=== PATIENT | male | born 1940 | race Caucasian/White ===

== ENCOUNTER → 2020-02-02 07:35 | Outpatient (CLI) | payer MEDICARE, OTHER ==
--- NOTE | ~2020-02-02 | HEMODYNAMI ---
PATIENT:KATIE PETER MEDICAL RECORD: [id number] : 38 LOCATION:[facility] ADMISSION DATE: 02/02/20 Generatedon:02/02/20208:54 Patient name: KATIE PETER Patient #: [id number] SSN: : [id number] Date of study: 02/02/2020 Page: Of Hemodynamic Procedure Report Patient Data Patient Demographics Procedure consent was obtained First Name: KATIE Gender: Male Last Name: BRITTANI : 1940 [facility] Initial: ESTHELA Age: 79 year(s) Patient #: [id number] Race: Unknown Additional ID: [id number] Contact details Address: [address] [place] [address] [address]IVE State: [place] City: [place] Zip code: [address] Admission Admission Data Admission Date: 02/02/2020 Admission Time: 7:35 Procedure Procedure Types Cath Procedure Peripheral Cath Diagnostic Procedure Miscellaneous Epidural Steroid Injection Procedure Description Procedure Date Procedure Date: 02/02/2020 Procedure Start Time: 8:47 Procedure Staff Name Function Mohinder Schaeffer MD Performing Physician Flash Reeves RT Monitor Joy RM RN Nurse Procedure Data Cath Procedure Fluoroscopy Diagnostic fluoroscopy Total fluoroscopy Time: 0.1 time: 0.1 min min Diagnostic fluoroscopy Total fluoroscopy dose: 3 dose: 3 mGy mGy Hemodynamics Rest Pre Cath Intra NCS Post Cath Procedure Log Time Note 8:42:12 Flash Reeves RT (R) (CV) sent for patient. Start room use. 8:42:24 Time tracking: Regular hours (M-F 7:00 - 5:00) 8:42:29 Patient received from Other to IR Alert and oriented. Tansferred to table in Prone position. 8:42:33 Signed procedure consent form obtained from patient. 8:42:34 Correct patient and procedure confirmed by team. 8:42:37 Pre-procedure instructions explained to patient. 8:42:38 Pre-op teaching completed and patient verbalized understanding. 8:42:46 ALLERGIES KEFLEX 8:42:49 Is patient on blood thinner?No 8:43:04 KIT EPIDURAL CATHETERIZATION opened to sterile field. 8:43:24 8:43:35 Lumbar area was prepped with betadine and draped in sterile fashion 8:46:54 --------ALL STOP TIME OUT------ 8:46:55 Final Timeout: patient, procedure, and site verified with staff and physician. All members of the team are in agreement. 8:46:59 Lumbar site verified by team. 8:47:06 Sedation plan: Local Anesthetic Medication:Lidocaine 8:47:43 Procedure started. 8:47:43 Full Disclosure recording started 8:47:48 Local anesthetic to Lumbar area with Lidocaine 1% by Mohinder Schaeffer MD.INITIAL ACCESS ONLY 8:52:54 Procedure ended.(Physican Out) 8:53:14 Fluoroscopy time 00.10 minutes. 8:53:16 Fluoroscopy dose: 3 mGy 8:53:16 Flurop Dose total: 3 8:53:21 Insertion/operative site no bleeding no hematoma. 8:53:40 BANDAIDE APPLIED TO LUMBAR AREA PT SENT HOME Device Usage Item Name Manufacture Quantity Catalog Hospital Part Current Minima l Lot# / Number Charge Number Stock Stock Serial# Code KIT EPIDURAL Teleflex 1 [id number] CATHETERIZATION Signature Audit [place] Stage Time Signature Unsigned Intra-Procedure 02/02/2020 Flash 8:54:04 AM Lala RT (R) (CV) [facility] [address] [place] [address]
== END | disposition home or self-care (01) ==
LOC: D.RAD 07:35 → EDSEX 07:35 → D.RAD 09:00
PROVIDERS: ATTEND Specialist
DX: M54.89 Other dorsalgia (principal); M48.061 Spinal stenosis, lumbar region without neurogenic claudication

== ENCOUNTER → 2020-10-01 09:15 | Day surgery (SDC) | payer MEDICARE, OTHER ==
--- NOTE | ~2020-10-01 | HEMODYNAMI ---
PATIENT:KATIE PETER MEDICAL RECORD: [id number] : 38 LOCATION:[facility] ADMISSION DATE: 10/01/20 Generatedon:110:09 Patient name: KATIE PETER Patient #: [id number] SSN: : 1940 Date of study: 10/01/2020 Page: Of Hemodynamic Procedure Report Patient Data Patient Demographics Procedure consent was obtained First Name: KATIE Gender: Male Last Name: BRITTANI : 1940 [facility] Initial: ESTHELA Age: 80 year(s) Patient #: [id number] Race: Unknown Additional ID: [id number] Contact details Address: [address] [place] [address] [address]IVE State: [place] City: [place] Zip code: [address] Past Medical History Allergies Allergen Reaction Date Comments Reported Other allergy 10/01/2020 keflex Admission Admission Data Admission Date: 10/01/2020 Admission Time: 9:15 Procedure Procedure Types Cath Procedure Peripheral Cath Diagnostic Procedure Refrigeration [place] Peripheral Procedures Miscellaneous Epidural Steroid Injection Procedure Description Procedure Date Procedure Date: 10/01/2020 Procedure Start Time: 9:53 Procedure Staff Name Function Mohinder Schaeffer MD Performing Physician Faustina Beatty RT Adjunct Professor Of English Aleida Fiore RN Nurse Procedure Data Cath Procedure Fluoroscopy Diagnostic fluoroscopy Total fluoroscopy Time: 0.7 time: 0.7 min min Diagnostic fluoroscopy Total fluoroscopy dose: 16 dose: 16 mGy mGy Hemodynamics Rest Pre Cath Intra NCS Post Cath Procedure Log Time Note 9:34:53 Time tracking: Regular hours (M-F 7:00 - 5:00) 9:35:01 Patient received from Other to IR Alert and oriented. Tansferred to table in Prone position. 9:35:05 Signed procedure consent form obtained from patient. 9:41:04 KIT EPIDURAL CATHETERIZATION opened to sterile field. 9:50:02 Patient allergic to Other allergykeflex 9:50:07 Is patient on blood thinner?No 9:50:18 Lumbar area was prepped with betadine and draped in sterile fashion 9:50:22 - 9:52:45 Physician arrived 9:52:51 --------ALL STOP TIME OUT------ 9:52:52 Final Timeout: patient, procedure, and site verified with staff and physician. All members of the team are in agreement. 9:53:01 Procedure started. 9:53:01 Full Disclosure recording started 9:53:08 Local anesthetic to Lumbar area with Lidocaine 1% by Mohinder Schaeffer MD.INITIAL ACCESS ONLY 10:01:20 Procedure ended.(Physican Out) 10:01:40 Fluoroscopy time 00.70 minutes. 10:01:46 Fluoroscopy dose: 16 mGy 10:01:46 Flurop Dose total: 16 10:01:48 Procedure and supply charges have been captured, reviewed, submitted an d are correct. 10:09:01 Patient transfered to Other with Ambulatory. Device Usage Item Name Manufacture Quantity Catalog Hospital Part Current Minima l Lot# / Number Charge Number Stock Stock Serial# Code KIT EPIDURAL Teleflex 1 [id number] CATHETERIZATION Signature Audit [place] Stage Time Signature Unsigned Intra-Procedure 10/01/2020 Faustina Beatty 10:09:22 AM RT(R) [facility] [address] [place] [address]
== END | disposition home or self-care (01) ==
LOC: D.RAD 09:15
PROVIDERS: ATTEND Specialist
DX: M48.061 Spinal stenosis, lumbar region without neurogenic claudication (principal); M54.5 Low back pain